=== PATIENT | male | born 1980 | race Caucasian/White ===

== ENCOUNTER 2020-09-14 16:04 | Emergency (ER) | payer MEDICAID, OTHER ==
[~2020-09-14] VITALS: Ht 182.9 cm; Wt 90.8 kg
[~2020-09-14 16:04] MED LIST: ACET325T14 PO; ALBU8.5H5; AMLO-211 PO; AMLO10TA4 PO; AMLO5TAB4 PO; AZIT500T2; CODE118S4; HYDR12.547 PO; HYDR25TA6 PO; KETO10TA PO; LABE100T6 PO; LOSA25TA25 PO; PRED10TA
[2020-09-14 16:14] VITALS: BP 178/119
[2020-09-14] MEDS ORDERED: KETOROLAC 30 MG/1 ML ONE (17:15)
[2020-09-14] MEDS ORDERED: METHOCARBAMOL 750 MG TABLET ONE (17:15)
--- NOTE | 2020-09-14 17:22 | NUR ---
Attempted to give pt ice, pt refused ice.
[2020-09-14] MEDS ORDERED: KETOROLAC 30 MG/1 ML IM ONE (17:30)
[2020-09-14] MEDS ORDERED: METHOCARBAMOL 750 MG TABLET PO ONE (17:30)
[2020-09-14] MEDS ORDERED: LIDODERM 5% PATCH TD ONE ×2 (17:32→18:00)
== END 2020-09-14 18:41 | disposition home or self-care (01) ==
LOC: ED 18:38
DX: M79.18 Myalgia, other site (principal); M25.512 Pain in left shoulder; R07.9 Chest pain, unspecified; I10 Essential (primary) hypertension
CPT/HCPCS: 71046; 73030; 96372; 99284; J1885